=== PATIENT | female | born 1945 | race Caucasian/White ===

== ENCOUNTER 2024-04-17 19:02 | Inpatient (IN) | payer MEDICARE, MEDICAID, SELFPAY ==
--- NOTE | ~2024-04-17 | US_ITS ---
EXAMINATION: US renal BI DATE: 04/19/2024 15:47 INDICATION: Acute kidney injury. TECHNIQUE: Multiple ultrasound grayscale images of the kidneys were obtained. COMPARISON: None. FINDINGS: The right kidney measures 7.4 x 3.8 x 3.5 cm cm. The left kidney measures 7.2 x 3.6 x 3.6 cm cm. The kidneys demonstrate normal parenchymal echogenicity. There is no hydronephrosis. The bladder is dina l. IMPRESSION: 1. Mild atrophy of the kidneys. No hydronephrosis. Reviewed, dictated and finalized at location E.
--- NOTE | ~2024-04-17 | XR_ITS ---
XR chest 2V Ordering provider: Kusum Hernandez MD History: 79 years Female with . chest pain . Comparison: None. FINDINGS: MEDIASTINUM: The cardiac silhouette is not enlarged. LUNGS: No infiltrates, effusions or pneumothorax. OTHER: No free air under the diaphragm. Degenerative the spine. IMPRESSION: No acute cardiopulmonary pathology. Reviewed, dictated and finalized at location A.
[2024-04-17 18:59] VITALS: BP 136/60; PULSE 77; RESP 21; TEMP 36.8; O2SAT 100
--- NOTE | 2024-04-17 19:08 | ECG_ITS ---
Test Date: 2024-04-17 19:42:43 Measurements Intervals [place] Rate: 66 P: 68 ME: 154 QRS: 51 QRSD: 88 T: 79 QT: 376 QTc: 395 Interpretive Statements SINUS RHYTHM No previous ECG available for comparison Electronically Signed On 04-19-2024 13:29:21 CDT by Domingo Paulino M.D.
[2024-04-17 19:09] VITALS: PULSE 77; O2SAT 100
--- NOTE | 2024-04-17 19:28 | ED.CHESTPAIN ---
HPI - Chest Pain General Chief Complaint: Chest Pain <Rachelle Keane PA-C - Last Filed: 04/18/24 02:43> Stated Complaint: chest pain <Rachelle Keane PA-C - Last Filed: 04/18/24 02:43> Time Seen by Provider: 04/17/24 19:13 <Rachelle Keane PA-C - Last Filed: 04/18/24 02:43> Source: patient, family and EMS <ERENDIRA Jenkins Last Filed: 04/18/24 02:43> Mode of arrival: EMS <ERENDIRA Jenkins Last Filed: 04/18/24 02:43> History of Present Illness HPI narrative: This is a 79 year old female that presents to the ER for chest pain and shortness of breath since yesterday. Her daughter is her primary respiratory care faculty due to history of a stroke last year. Daughter reports she has also been coughing. Her daughter tried to convince her to come in yesterday for evaluation. Patient with history of CHF, CAD. Denies any chest pain or shortness of breath currently <Rachelle Keane PA-C - Last Filed: 04/18/24 02:43> Related Data Home Medications: Home Medications Medication Instructions Recorded Confirmed amlodipine 5 mg tablet 5 mg feeding tube QAM 04/17/24 04/17/24 aspirin 81 mg chewable tablet 81 mg feeding tube QAM 04/17/24 04/17/24 atorvastatin 80 mg tablet 80 mg feeding tube HS 04/17/24 04/17/24 carvedilol 6.25 mg tablet 6.25 mg feeding tube BID 04/17/24 04/17/24 clopidogrel 75 mg tablet 75 mg feeding tube QAM 04/17/24 04/17/24 dapagliflozin propanediol 10 mg 10 mg feeding tube QAM 04/17/24 04/17/24 tablet (Farxiga) furosemide 20 mg tablet 20 mg feeding tube QAM PRN Weight 04/17/24 04/17/24 Gain sacubitril 24 mg-valsartan 26 mg 1 tablet feeding tube BID 04/17/24 04/17/24 tablet (Entresto) spironolactone 25 mg tablet 25 mg feeding tube QAM 04/17/24 04/17/24 <Rachelle Keane PA-C - Last Filed: 04/18/24 02:43> Allergies/Adverse Reactions: Allergies Allergy/AdvReac Type Severity Reaction Status Date / Time No Known Allergies Allergy Verified 04/17/24 19:11 <Rachelle Keane PA-C - Last Filed: 04/18/24 02:43> Review of Systems Review of Systems: CONSTITUTIONAL: Denies fever CARDIOVASCULAR: Reports chest pain. Denies edema. RESPIRATORY: Reports cough and dyspnea. <Rachelle Keane PA-C - Last Filed: 04/18/24 02:43> All systems reviewed & are unremarkable except as noted in HPI and below <Rachelle Keane PA-C - Last Filed: 04/18/24 02:43> PMFSH Past Medical History Medical History: Medical History (Updated 04/18/24 @ 02:39 by Rachelle Keane PA-C) History of CAD (coronary artery disease) History of CHF (congestive heart failure) History of diabetes mellitus History of hyperlipidemia History of hypertension <Rachelle Keane PA-C - Last Filed: 04/18/24 02:43> Family History Family History: Family History (Updated 04/17/24 @ 23:17 by Margareth Jones RN) Sibling Acute myocardial infarction Congestive heart failure Mother Cerebrovascular accident Diabetes mellitus <Rachelle Keane PA-C - Last Filed: 04/18/24 02:43> Social History Social History: Social History (Updated 04/17/24 @ 19:30 by Rachelle Keane PA-C) Smoking status: Former smoker Alcohol intake: never Substance use: never Do You Feel Safe in your Home?: Yes Lack of Transportation: No Lack of Food: Never True Current Housing: I Have Housing Concerned About Future Housing: No Difficulty Paying Gas/Electric Bills: No Difficulty Paying for Meds: No Currently Unemployed: No Education: Associate Degree Difficulty w/ Childcare or Family Care: No Spiritual care concerns: No <Rachelle Keane PA-C - Last Filed: 04/18/24 02:43> Exam Narrative: GENERAL: Elderly, well-nourished, and in no acute distress. HEAD: Normocephalic, atraumatic. EYES: EOMI. ENT: Nares clear, no rhinorrhea or epistaxis. Mucous membranes moist. Oropharynx without tonsillar hypertrophy exudate or other lesions. NECK: Supple. No adenopathy or masses. CH
[2024-04-17 19:59] LABS: Basophils Percent Auto 0.6 % (0.2-1.2); Eosinophils Absolute Auto 0.1 K/mm3 (0-0.3); Hematocrit 30.3 % (37.0-47.0); Hemoglobin 9.8 g/dL (12.0-15.0); Immature Granulocyte Absolute 0.03 K/mm3 (0.00-0.031); Immature Granulocyte Percent A 0.5 % (0-0.5); Lymphocytes Absolute Auto 1.04 K/mm3 (0.9-3.2); Lymphocytes Percent Auto 15.6 % (18.3-44.2); Mean Corpuscular HGB Conc 32.3 g/dl (32-36); Mean Corpuscular Hemoglobin 31.9 pg (26-34); Mean Corpuscular Volume 98.7 fl (80-100); Mean Platelet Volume 10.2 fl (7.4-10.4); Monocytes Absolute Auto 1.1 K/mm3 (0.1-0.6); Neutrophils Absolute Auto 4.3 K/mm3 (1.3-6.7); Neutrophils Percent Auto 64.3 % (45.5-73.1); Platelet Count Result 277 k/mm3 (150-375); Red Blood Count 3.07 M/mm3 (4.2-5.4); White Blood Count 6.7 K/mm3 (4.5-10.0)
[2024-04-17 20:08] LABS: Alanine Aminotransferase 10 U/L (6-35); Albumin Level 4.3 g/dL (3.5-5.1); Alkaline Phosphatase 61 U/L (38-126); Anion Gap 12 mmol/L (4-12); Aspartate Amino Transferase 26 U/L (14-36); Bilirubin,Total 0.6 mg/dL (0.2-1.3); Blood Urea Nitrogen 36 mg/dL (7-17); Calcium 9.6 mg/dL (8.4-10.2); Carbon Dioxide 21 mmol/L (22-30); Chloride 102 mmol/L (98-107); Estimated CRCL calculation 9 ml/min; Estimated Glomerular Filt Rate 14; Glucose 101 mg/dL (65-110); Lipase 121 U/L (23-300); Potassium 5.5 mmol/L (3.4-5.0); Sodium 135 mmol/L (137-145)
[2024-04-17 20:13] LABS: Prothrombin Time 13.9 Seconds (11.1-14.7)
[2024-04-17 20:26] LABS: NT Pro B Type Natriuretic Pept 1270 pg/mL (19.9-100); Troponin I 0.019 ng/mL (0.000-0.034)
[2024-04-17] MEDS: SODIUM CHLORIDE 0.9% IV 500 ML 999 ML IV CONT (21:06)
[2024-04-17 21:07] LABS: Influenza A QL RT-PCR Negative (Negative); Influenza B QL RT-PCR Negative (Negative); RSV RNA, RT-PCR Negative (Negative); SARS-CoV-2 RNA PCR Positive (Negative)
[2024-04-17 21:17] VITALS: BP 140/65; PULSE 67; RESP 21; O2SAT 100
[2024-04-17 21:57] LABS: Add Urine Microscopic? YES; Appearance Urine Clear (Clear); Bacteria Urine 3+ /hpf; Bilirubin Urine Negative (Negative); Blood Urine Negative (Negative); Color Urine Yellow (Yellow); Glucose Urine UA Negative (Negative); Ketones Urine Negative (Negative); Leukocyte Esterase Ur 1+ LEU/UL (Negative); Nitrate Urine Negative (Negative); Non Pathogenic Casts 0-2; Protein Urine Negative (Negative); RBC Urine 0-2 /hpf (0-2); Specific Grav Ur 1.005 (1.001-1.035); Squamous Epithelial Cell Urine None Seen /hpf (Few); Urobilinogen Urine 0.2 mg/dL (<2.0)
--- NOTE | 2024-04-17 22:08 | PM.IMHP ---
H&P: HPI History of Present Illness Date/Time: 04/17/24 22:08 Chief Complaint: chest pain Narrative: This is a 79 yo female with past medical history significant for stroke, dysarthria, congestive heart failure, hypertension, coronary artery disease, type diabetes mellitus. Patient is status post PEG tube placement. Was brought to the emergency room after complaining of chest discomfort however he after preliminary workup was done including EKG and negative troponins and after further evaluation urinalysis was significant for numerous WBCs present, patient tested positive for COVID. patient usually gets her care at another facility. Most of the history has been obtained from daughter who is at bedside. Patient has been admitted for further evaluation management and treatment. XR chest 2V Ordering provider: Kusum Hernandez MD History: 79 years Female with . chest pain . Comparison: None. FINDINGS: MEDIASTINUM: The cardiac silhouette is not enlarged. LUNGS: No infiltrates, effusions or pneumothorax. OTHER: No free air under the diaphragm. Degenerative the spine. IMPRESSION: No acute cardiopulmonary pathology. Review of Systems Review of Systems: chest pain ROS unobtainable: Yes unobtainable due to medical condition ( dysarthria, dementia) [facility] Past Medical History Medical History (Updated 04/18/24 @ 06:47 by Sylvia Montiel PA-C) History of CAD (coronary artery disease) History of CHF (congestive heart failure) History of diabetes mellitus History of hyperlipidemia History of hypertension Family History Family History (Updated 04/17/24 @ 23:17 by Margareth Jones RN) Sibling Acute myocardial infarction Congestive heart failure Mother Cerebrovascular accident Diabetes mellitus Social History Social History (Updated 04/17/24 @ 19:30 by Rachelle Keane PA-C) Smoking status: Former smoker Alcohol intake: never Substance use: never Do You Feel Safe in your Home?: Yes Lack of Transportation: No Lack of Food: Never True Current Housing: I Have Housing Concerned About Future Housing: No Difficulty Paying Gas/Electric Bills: No Difficulty Paying for Meds: No Currently Unemployed: No Education: Associate Degree Difficulty w/ Childcare or Family Care: No Spiritual care concerns: No Meds Home Medications and Allergies Home Medications Medication Instructions Recorded Confirmed Type amlodipine 5 mg tablet 5 mg feeding tube QAM 04/17/24 04/17/24 History aspirin 81 mg chewable tablet 81 mg feeding tube QAM 04/17/24 04/17/24 History atorvastatin 80 mg tablet 80 mg feeding tube HS 04/17/24 04/17/24 History carvedilol 6.25 mg tablet 6.25 mg feeding tube BID 04/17/24 04/17/24 History clopidogrel 75 mg tablet 75 mg feeding tube QAM 04/17/24 04/17/24 History dapagliflozin propanediol 10 mg 10 mg feeding tube QAM 04/17/24 04/17/24 History tablet (Farxiga) furosemide 20 mg tablet 20 mg feeding tube QAM PRN Weight 04/17/24 04/17/24 History Gain sacubitril 24 mg-valsartan 26 mg 1 tablet feeding tube BID 04/17/24 04/17/24 History tablet (Entresto) spironolactone 25 mg tablet 25 mg feeding tube QAM 04/17/24 04/17/24 History Allergies Allergy/AdvReac Type Severity Reaction Status Date / Time No Known Allergies Allergy Verified 04/17/24 19:11 Vital Signs Vital Signs - 24 hr 04/17/24 18:59 04/17/24 19:09 04/17/24 19:09 Temperature 98.3 F Pulse Rate 77 77 Respiratory Rate 21 H Blood Pressure 136/60 Pulse Oximetry 100 100 Oxygen Delivery Room Air Room Air 04/17/24 21:17 Temperature Pulse Rate 67 Respiratory Rate 21 H Blood Pressure 140/65 Pulse Oximetry 100 Oxygen Delivery Exam Narrative: lying in stretcher. Const: General: comfortable, no acute distress, well developed, alert, awake and average body habitus Nutritional Appearance: underweight Orientation/consciousness: patient oriented x3 HE
--- NOTE | 2024-04-17 23:04 | ADMGEN ---
This patient, Nessa Lozano, was admitted to Medical Room 244-. Patient/family oriented to hospital policies and general routines including ID bracelet, bed and alarms, visiting hours, pain management, procedures, bathroom and other care routines, personal items, smoking policy, room service/diet, and visiting hours. Information on how to activate the Rapid Response Team has been discussed. Patient/Family are encouraged to report perceived risks to care and to ask questions if they do not understand what they are told or what they should do.
[2024-04-17 23:13] LABS: Troponin I 0.017 ng/mL (0.000-0.034)
[2024-04-18] VITALS (10 sets, daily range): BP systolic 92–134; BP diastolic 36–58; PULSE 62–73; RESP 16–20; TEMP 36.3–36.9; O2SAT 93–100
--- NOTE | 2024-04-18 06:42 | PM.IMPN ---
Progress Note: A&P Assessment and Plan (1) COVID-19: Code(s): U07.1 - COVID-19 Status: Acute Assessment and Plan: Patient presents with chest pain and shortness of breath. No need for remdesivir or steroids at this time as patient is afebrile, denies SOB, no WBC. - Covid positive on PCR - Chest XR: No acute cardiopulmonary pathology - Troponin WNL (2) Hyperkalemia: Code(s): E87.5 - Hyperkalemia Status: Acute Assessment and Plan: Pateints potassium was 5.5 on admission. - K 4.8 on am labs - Continue to monitor (3) Abnormal urinalysis: Code(s): R82.90 - Unspecified abnormal findings in urine Status: Acute Assessment and Plan: - UA:clear with 1+ leukocyte, 6-10 white blood cell, 3+ bacteria negative nitrates, no squamous epithelial cells seen - UC obtained on 04/17: pending - No previous micro to be reviewed - started on Rocephin on 04/17 (4) Acute on chronic renal failure: Qualifiers: Acute renal failure type: unspecified Chronic kidney disease stage: unspecified stage Qualified Code(s): N17.9 - Acute kidney failure, unspecified; N18.9 - Chronic kidney disease, unspecified Code(s): N17.9 - Acute kidney failure, unspecified; N18.9 - Chronic kidney disease, unspecified Status: Acute Assessment and Plan: BUN/Cr 36/3.2. No prior labs to compare this to. - BUN/Cr 34/3 on am labs - IV NS 75 ml/hr - Avoid nephrotoxic medications - Renally dose medications - Monitor I/O and vital signs - Monitor renal function with am labs (5) Type 2 diabetes mellitus: Code(s): E11.9 - Type 2 diabetes mellitus without complications Status: Acute Assessment and Plan: - hypoglycemia protocol - POC blood glucose ACHS - home medication - Farxiga 10 mg per PEG tube - correct regimen ordered - low dose TIDWM (6) Hypertension: Code(s): I10 - Essential (primary) hypertension Status: Acute Assessment and Plan: Chronic, well controlled on home medications. - amlodipine 5 mg daily - carvedilol 6.25 mg BID - entresto 1 tab BID - spironolactone 25 mg daily - holding lasix 20 mg PRN due to kidney function - monitor (7) CHF (congestive heart failure): Code(s): I50.9 - Heart failure, unspecified Status: Acute Assessment and Plan: Chronic, does not appear to be in acute exacerbation. - Continue home medications - Monitor Time Spent With Patient Time with patient: 25 - 35 minutes Subjective Date/time seen: 04/18/24 06:42 Interval history: 79 year old female with past medical history of CAD, CHF, DM, HLD, and HTN presents to the hospital for chest pain and shortness of breath. Patient is pleasant lying comfortably in bed. She is AOx4 on assessment. Patient endorses a slight nonproductive cough. She denies chest pain, shortness of breath, nausea/vomiting and changes in bowel. She also denies hematuria, dysuria, and burning sensation. She remains on rocephin at this time. Started patient on IV NS for kidney function. Cr 3 on am labs. If no improvement with fluids will consult nephrology. Review of Systems Review of Systems: All systems reviewed & are unremarkable except as noted in HPI and below Exam Narrative: AF HR 72 RR 16 SpO2 97 BP 92/36 General: frail female in no acute respiratory distress who is nontoxic appearing, lying semi recumbent in bed. HEENT: Normocephalic. Atraumatic. Pupils equal round reactive to light. Extraocular movement intact. No facial asymmetry. Chest: Lungs are clear but diminished to auscultation bilaterally. No wheezes or crackles. CV: Heart was regular rate and rhythm. S1-S2. No murmurs, gallops, or rubs. Abd: Abdomen was soft. Nontender. Nondistended. Positive bowel sounds. Peg tube in place. Ext: No clubbing, cyanosis, or edema. 2+ DP pulses bilaterally. Neuro: Patient is alert and oriented x4. Strength is 5/5 in both upper and lower extremities. Cranial ne
[2024-04-18 07:56] LABS: Glucose Point of Care 91 mg/dl (65-105)
[2024-04-18] MEDS: ASPIRIN 81 MG CHEWABLE TABLET FEED TUBE (08:41)
[2024-04-18] MEDS: EMPAGLIFLOZIN 25 MG TABLET FEED TUBE (08:42)
[2024-04-18] MEDS: CLOPIDOGREL BISULFATE 75 MG TABLET FEED TUBE (08:42)
[2024-04-18] MEDS: carvediloL 6.25 MG TABLET FEED TUBE ×2 (08:42→20:24)
[2024-04-18] MEDS: amLODIPine BESYLATE 5 MG TABLET FEED TUBE (08:42)
[2024-04-18 08:45] LABS: Basophils Percent Auto 0.5 % (0.2-1.2); Eosinophils Absolute Auto 0.2 K/mm3 (0-0.3); Eosinophils Percent Auto 3.1 % (0-4.4); Hematocrit 29.6 % (37.0-47.0); Hemoglobin 9.2 g/dL (12.0-15.0); Immature Granulocyte Absolute 0.02 K/mm3 (0.00-0.031); Immature Granulocyte Percent A 0.3 % (0-0.5); Lymphocytes Absolute Auto 0.94 K/mm3 (0.9-3.2); Lymphocytes Percent Auto 14.4 % (18.3-44.2); Mean Corpuscular HGB Conc 31.1 g/dl (32-36); Mean Corpuscular Hemoglobin 30.8 pg (26-34); Mean Platelet Volume 10.5 fl (7.4-10.4); Monocytes Absolute Auto 1.1 K/mm3 (0.1-0.6); Monocytes Percent Auto 16.1 % (2.6-8.5); Neutrophils Absolute Auto 4.3 K/mm3 (1.3-6.7); Neutrophils Percent Auto 65.6 % (45.5-73.1); Platelet Count Result 268 k/mm3 (150-375); Red Blood Count 2.99 M/mm3 (4.2-5.4); Red Cell Distribution Width 12.8 % (11.5-14.5); White Blood Count 6.5 K/mm3 (4.5-10.0)
[2024-04-18 08:57] LABS: Alanine Aminotransferase 10 U/L (6-35); Albumin Level 3.8 g/dL (3.5-5.1); Alkaline Phosphatase 59 U/L (38-126); Anion Gap 13 mmol/L (4-12); Aspartate Amino Transferase 23 U/L (14-36); Bilirubin,Total 0.4 mg/dL (0.2-1.3); Blood Urea Nitrogen 34 mg/dL (7-17); Carbon Dioxide 19 mmol/L (22-30); Chloride 106 mmol/L (98-107); Estimated CRCL calculation 10 ml/min; Estimated Glomerular Filt Rate 15; Glucose 93 mg/dL (65-110); Potassium 4.8 mmol/L (3.4-5.0); Sodium 138 mmol/L (137-145)
[2024-04-18 11:54] LABS: Glucose Point of Care 98 mg/dl (65-105)
[2024-04-18] MEDS: SODIUM CHLORIDE 0.9% IV 1,000 ML 75 ML IV CONT (13:50)
[2024-04-18] MEDS: ACETAMINOPHEN 325 MG TABLET 650 MG PO ×2 (13:50→20:23)
[2024-04-18 16:58] LABS: Glucose Point of Care 130 mg/dl (65-105)
--- NOTE | 2024-04-18 17:27 | PC.NURSE ---
daughter here to visit, confirmed that pt takes 2 boost cans at breakfast and dinner per GT, order placed for suppliment to begin 04/19/2024
[2024-04-18] MEDS: ATORVASTATIN 40 MG TABLET 80 MG FEED TUBE (20:24)
[2024-04-19] VITALS (9 sets, daily range): BP systolic 102–117; BP diastolic 30–48; PULSE 60–84; RESP 18–22; TEMP 36.3–37.1; O2SAT 93–100
[2024-04-19] MEDS: SODIUM CHLORIDE 0.9% IV 1,000 ML 75 ML IV CONT (04:31)
[2024-04-19 05:16] LABS: Basophils Percent Auto 0.5 % (0.2-1.2); Eosinophils Absolute Auto 0.4 K/mm3 (0-0.3); Eosinophils Percent Auto 5.4 % (0-4.4); Immature Granulocyte Absolute 0.02 K/mm3 (0.00-0.031); Immature Granulocyte Percent A 0.3 % (0-0.5); Lymphocytes Absolute Auto 1.38 K/mm3 (0.9-3.2); Lymphocytes Percent Auto 21.2 % (18.3-44.2); Mean Corpuscular Hemoglobin 31.5 pg (26-34); Mean Corpuscular Volume 101.4 fl (80-100); Mean Platelet Volume 10.3 fl (7.4-10.4); Monocytes Absolute Auto 0.8 K/mm3 (0.1-0.6); Monocytes Percent Auto 12.7 % (2.6-8.5); Neutrophils Absolute Auto 3.9 K/mm3 (1.3-6.7); Neutrophils Percent Auto 59.9 % (45.5-73.1); Platelet Count Result 256 k/mm3 (150-375); Red Blood Count 2.86 M/mm3 (4.2-5.4); Red Cell Distribution Width 12.7 % (11.5-14.5); White Blood Count 6.5 K/mm3 (4.5-10.0)
[2024-04-19 05:33] LABS: Alanine Aminotransferase 10 U/L (6-35); Albumin Level 3.7 g/dL (3.5-5.1); Alkaline Phosphatase 57 U/L (38-126); Anion Gap 12 mmol/L (4-12); Aspartate Amino Transferase 23 U/L (14-36); Bilirubin,Total 0.3 mg/dL (0.2-1.3); Blood Urea Nitrogen 36 mg/dL (7-17); Calcium 8.8 mg/dL (8.4-10.2); Carbon Dioxide 21 mmol/L (22-30); Chloride 107 mmol/L (98-107); Estimated CRCL calculation 11 ml/min; Estimated Glomerular Filt Rate 17; Glucose 93 mg/dL (65-110); Potassium 4.5 mmol/L (3.4-5.0); Sodium 140 mmol/L (137-145)
--- NOTE | 2024-04-19 06:42 | PM.IMPN ---
Progress Note: A&P Assessment and Plan (1) COVID-19: Code(s): U07.1 - COVID-19 Status: Acute Assessment and Plan: Patient presents with chest pain and shortness of breath. No need for remdesivir or steroids at this time as patient is afebrile, denies SOB, no WBC. - Covid positive on PCR - Chest XR: No acute cardiopulmonary pathology - Troponin WNL (2) Hyperkalemia: Code(s): E87.5 - Hyperkalemia Status: Acute Assessment and Plan: Pateints potassium was 5.5 on admission. - K 4.5 on am labs - Continue to monitor (3) Abnormal urinalysis: Code(s): R82.90 - Unspecified abnormal findings in urine Status: Acute Assessment and Plan: - UA:clear with 1+ leukocyte, 6-10 white blood cell, 3+ bacteria negative nitrates, no squamous epithelial cells seen - UC obtained on 04/17: Ecoli sensitivities pending - No previous micro to be reviewed - started on Rocephin on 04/17 (4) Acute on chronic renal failure: Qualifiers: Acute renal failure type: unspecified Chronic kidney disease stage: unspecified stage Qualified Code(s): N17.9 - Acute kidney failure, unspecified; N18.9 - Chronic kidney disease, unspecified Code(s): N17.9 - Acute kidney failure, unspecified; N18.9 - Chronic kidney disease, unspecified Status: Acute Assessment and Plan: BUN/Cr 36/3.2. No prior labs to compare this to. Per patients daughter/respiratory care faculty she has history of CKD, unknown stage. Previously following a buckle coverer but has not been seen for several years. - BUN/Cr 36/2.7 on am labs - IV NS 75 ml/hr - Renal US ordered - Avoid nephrotoxic medications - Renally dose medications - Monitor I/O and vital signs - Monitor renal function with am labs (5) Type 2 diabetes mellitus: Code(s): E11.9 - Type 2 diabetes mellitus without complications Status: Acute Assessment and Plan: Patients blood glucose has been stable throughout admission, not requiring any insulin therapy. Will discontinue the POC glucose and SSI at this time and monitor blood glucose with CMP. - home medication - Farxiga 10 mg per PEG tube (6) Hypertension: Code(s): I10 - Essential (primary) hypertension Status: Acute Assessment and Plan: Chronic, well controlled on home medications. - amlodipine 5 mg daily - carvedilol 6.25 mg BID - entresto 1 tab BID - spironolactone 25 mg daily - holding lasix 20 mg PRN due to kidney function - monitor (7) CHF (congestive heart failure): Code(s): I50.9 - Heart failure, unspecified Status: Acute Assessment and Plan: Chronic, does not appear to be in acute exacerbation. - Continue home medications - Monitor Time Spent With Patient Time with patient: 25 - 35 minutes Subjective Date/time seen: 04/19/24 06:42 Interval history: 79 year old female with past medical history of CAD, CHF, DM, HLD, and HTN presents to the hospital for chest pain and shortness of breath. Patient is pleasant lying comfortably in bed. She remains A&O x4. She endorses a slight cough,, but denies chest pain shortness of breath nausea/vomiting abdominal pain and changes in bowel/bladder. Patient's urine culture growing E coli with sensitivities pending. She remains on Rocephin at this time. Patients blood glucose has been stable throughout admission, not requiring any insulin therapy. Will discontinue the POC glucose and insulin at this time and monitor blood glucose with CMP. Patient's renal function improving with fluids. Unsure what patient's baseline renal function is as there are no labs to compare. Prior to admission patient was living alone. PT/OT ordered. Call made to patients daughter/respiratory care faculty. She states that patient does have history of CKD, but is unsure what stage. Patient previously seen by nephrology, but has not been in several years. All questions answered at time of discussion. Plan to call Dr. Bello (patients PCP)
[2024-04-19] MEDS: carvediloL 6.25 MG TABLET FEED TUBE ×2 (08:01→20:15)
[2024-04-19] MEDS: EMPAGLIFLOZIN 25 MG TABLET FEED TUBE (08:01)
[2024-04-19] MEDS: CLOPIDOGREL BISULFATE 75 MG TABLET FEED TUBE (08:01)
[2024-04-19] MEDS: amLODIPine BESYLATE 5 MG TABLET FEED TUBE (08:01)
[2024-04-19] MEDS: ASPIRIN 81 MG CHEWABLE TABLET FEED TUBE (08:01)
[2024-04-19 08:30] LABS: Glucose Point of Care 80 mg/dl (65-105)
--- NOTE | 2024-04-19 17:00 | PC.NURSE ---
IV access lost on pt, multiple attempts to obtain access with no success. DONAVAN Mao notified. Ok to leave out at this time, abx changed to PO and IV fluids d/c.
[2024-04-19] MEDS: AMOXICILLIN/CLAVULANATE K 500-125 MG TAB 1 TABLET PO (20:15)
[2024-04-19] MEDS: ATORVASTATIN 40 MG TABLET 80 MG FEED TUBE (20:15)
[2024-04-20] VITALS (8 sets, daily range): BP systolic 105–143; BP diastolic 40–48; PULSE 57–84; RESP 16–18; TEMP 36.3–37.3; O2SAT 91–100
--- NOTE | 2024-04-20 08:21 | PM.IMPN ---
Progress Note: A&P Assessment and Plan (1) COVID-19: Code(s): U07.1 - COVID-19 Status: Acute Assessment and Plan: Patient presents with chest pain and shortness of breath. No need for remdesivir or steroids at this time as patient is afebrile, denies SOB, no WBC. - Covid positive on PCR - Chest XR: No acute cardiopulmonary pathology - Troponin WNL (2) Hyperkalemia: Code(s): E87.5 - Hyperkalemia Status: Acute Assessment and Plan: Pateints potassium was 5.5 on admission. - K 4.6 on am labs - Continue to monitor Resolved. (3) Abnormal urinalysis: Code(s): R82.90 - Unspecified abnormal findings in urine Status: Acute Assessment and Plan: - UA:clear with 1+ leukocyte, 6-10 white blood cell, 3+ bacteria negative nitrates, no squamous epithelial cells seen - UC obtained on 04/17: Ecoli pansensitive - No previous micro to be reviewed - started on Rocephin on 04/17, transitioned to renally dosed Augmentin on 04/19 (4) Acute on chronic renal failure: Qualifiers: Acute renal failure type: unspecified Chronic kidney disease stage: unspecified stage Qualified Code(s): N17.9 - Acute kidney failure, unspecified; N18.9 - Chronic kidney disease, unspecified Code(s): N17.9 - Acute kidney failure, unspecified; N18.9 - Chronic kidney disease, unspecified Status: Acute Assessment and Plan: BUN/Cr 36/3.2. No prior labs to compare this to. Per patients daughter/behavioral health care coordinator she has history of CKD, unknown stage. Previously following a manifold builder but has not been seen for several years. - BUN/Cr 33/2.2 on am labs - IV NS 75 ml/hr - Renal US: mild atrophy of the kidneys, without hydronephrosis. - Avoid nephrotoxic medications - Renally dose medications - Monitor I/O and vital signs - Monitor renal function with am labs (5) Type 2 diabetes mellitus: Code(s): E11.9 - Type 2 diabetes mellitus without complications Status: Acute Assessment and Plan: Patients blood glucose has been stable throughout admission, not requiring any insulin therapy. Will discontinue the POC glucose and SSI at this time and monitor blood glucose with CMP. - home medication - Farxiga 10 mg per PEG tube (6) Hypertension: Code(s): I10 - Essential (primary) hypertension Status: Acute Assessment and Plan: Chronic, well controlled on home medications. - amlodipine 5 mg daily - carvedilol 6.25 mg BID - entresto 1 tab BID - spironolactone 25 mg daily - holding lasix 20 mg PRN due to kidney function - monitor (7) CHF (congestive heart failure): Code(s): I50.9 - Heart failure, unspecified Status: Acute Assessment and Plan: Chronic, does not appear to be in acute exacerbation. - Continue home medications - Monitor Time Spent With Patient Time with patient: 25 - 35 minutes Subjective Date/time seen: 04/20/24 08:21 Interval history: 79 year old female with past medical history of CAD, CHF, DM, HLD, and HTN presents to the hospital for chest pain and shortness of breath. Patient is pleasant lying comfortably in bed. She states she is feeling much better today compared to yesterday. She has no complaints, denying chest pain, shortness of breath, nausea/vomiting and changes in bowel/bladder. Patients kidney function continues to improve with IV fluids. Renal US showing atrophy without hydronephrosis. Attempted to call PCP, Dr. Bello to obtain information on patients baseline function. Voicemail left. Patient was evaluated by PT/OT today. She was able to ambulate with wheeled walker. Recommending home health services. Review of Systems Review of Systems: All systems reviewed & are unremarkable except as noted in HPI and below Exam Narrative: AF HR 57 RR 18 SpO2 91 BP 105/40 General: frail female in no acute respiratory distress who is nontoxic appearing, lying semi recumbent in bed. HEENT: Normocephalic.
[2024-04-20] MEDS: carvediloL 6.25 MG TABLET FEED TUBE ×2 (08:58→21:25)
[2024-04-20] MEDS: EMPAGLIFLOZIN 25 MG TABLET FEED TUBE (08:58)
[2024-04-20] MEDS: CLOPIDOGREL BISULFATE 75 MG TABLET FEED TUBE (08:59)
[2024-04-20] MEDS: amLODIPine BESYLATE 5 MG TABLET FEED TUBE (08:59)
[2024-04-20] MEDS: AMOXICILLIN/CLAVULANATE K 500-125 MG TAB 1 TABLET PO ×2 (08:59→21:25)
[2024-04-20] MEDS: ASPIRIN 81 MG CHEWABLE TABLET FEED TUBE (08:59)
[2024-04-20 09:30] LABS: Basophils Percent Auto 0.5 % (0.2-1.2); Eosinophils Absolute Auto 0.3 K/mm3 (0-0.3); Eosinophils Percent Auto 3.9 % (0-4.4); Hematocrit 29.4 % (37.0-47.0); Hemoglobin 9.2 g/dL (12.0-15.0); Immature Granulocyte Absolute 0.02 K/mm3 (0.00-0.031); Immature Granulocyte Percent A 0.3 % (0-0.5); Lymphocytes Absolute Auto 1.27 K/mm3 (0.9-3.2); Lymphocytes Percent Auto 19.6 % (18.3-44.2); Mean Corpuscular HGB Conc 31.3 g/dl (32-36); Mean Corpuscular Hemoglobin 31.7 pg (26-34); Mean Corpuscular Volume 101.4 fl (80-100); Mean Platelet Volume 10.4 fl (7.4-10.4); Monocytes Absolute Auto 0.7 K/mm3 (0.1-0.6); Monocytes Percent Auto 10.5 % (2.6-8.5); Neutrophils Absolute Auto 4.2 K/mm3 (1.3-6.7); Neutrophils Percent Auto 65.2 % (45.5-73.1); Platelet Count Result 261 k/mm3 (150-375); Red Cell Distribution Width 12.8 % (11.5-14.5); White Blood Count 6.5 K/mm3 (4.5-10.0)
[2024-04-20 09:41] LABS: Alanine Aminotransferase 10 U/L (6-35); Alkaline Phosphatase 59 U/L (38-126); Anion Gap 12 mmol/L (4-12); Aspartate Amino Transferase 24 U/L (14-36); Bilirubin,Total 0.5 mg/dL (0.2-1.3); Blood Urea Nitrogen 33 mg/dL (7-17); Calcium 9.1 mg/dL (8.4-10.2); Carbon Dioxide 18 mmol/L (22-30); Chloride 108 mmol/L (98-107); Estimated CRCL calculation 14 ml/min; Estimated Glomerular Filt Rate 22; Glucose 123 mg/dL (65-110); Potassium 4.6 mmol/L (3.4-5.0); Sodium 138 mmol/L (137-145)
[2024-04-20] MEDS: ATORVASTATIN 40 MG TABLET 80 MG FEED TUBE (21:25)
[2024-04-21] VITALS (9 sets, daily range): BP systolic 100–113; BP diastolic 34–58; PULSE 58–65; RESP 17–20; TEMP 36.4–37.1; O2SAT 96–100; BMI 15.3
[2024-04-21 06:40] LABS: Basophils Percent Auto 0.4 % (0.2-1.2); Eosinophils Absolute Auto 0.4 K/mm3 (0-0.3); Eosinophils Percent Auto 6.7 % (0-4.4); Hematocrit 28.2 % (37.0-47.0); Hemoglobin 8.6 g/dL (12.0-15.0); Immature Granulocyte Absolute 0.02 K/mm3 (0.00-0.031); Immature Granulocyte Percent A 0.4 % (0-0.5); Lymphocytes Absolute Auto 1.45 K/mm3 (0.9-3.2); Lymphocytes Percent Auto 25.4 % (18.3-44.2); Mean Corpuscular HGB Conc 30.5 g/dl (32-36); Mean Corpuscular Hemoglobin 31.7 pg (26-34); Mean Corpuscular Volume 104.1 fl (80-100); Mean Platelet Volume 10.5 fl (7.4-10.4); Monocytes Absolute Auto 0.7 K/mm3 (0.1-0.6); Monocytes Percent Auto 12.3 % (2.6-8.5); Neutrophils Absolute Auto 3.1 K/mm3 (1.3-6.7); Neutrophils Percent Auto 54.8 % (45.5-73.1); Platelet Count Result 244 k/mm3 (150-375); Red Blood Count 2.71 M/mm3 (4.2-5.4); Red Cell Distribution Width 12.7 % (11.5-14.5); White Blood Count 5.7 K/mm3 (4.5-10.0)
[2024-04-21 06:54] LABS: Alanine Aminotransferase 8 U/L (6-35); Albumin Level 3.5 g/dL (3.5-5.1); Alkaline Phosphatase 54 U/L (38-126); Anion Gap 13 mmol/L (4-12); Aspartate Amino Transferase 21 U/L (14-36); Bilirubin,Total 0.4 mg/dL (0.2-1.3); Blood Urea Nitrogen 35 mg/dL (7-17); Calcium 8.9 mg/dL (8.4-10.2); Carbon Dioxide 15 mmol/L (22-30); Chloride 108 mmol/L (98-107); Estimated CRCL calculation 14 ml/min; Estimated Glomerular Filt Rate 23; Glucose 96 mg/dL (65-110); Potassium 4.6 mmol/L (3.4-5.0); Sodium 136 mmol/L (137-145)
[2024-04-21] MEDS: AMOXICILLIN/CLAVULANATE K 500-125 MG TAB 1 TABLET PO ×2 (08:59→21:42)
[2024-04-21] MEDS: EMPAGLIFLOZIN 25 MG TABLET FEED TUBE (09:00)
[2024-04-21] MEDS: carvediloL 6.25 MG TABLET FEED TUBE ×2 (09:00→21:42)
[2024-04-21] MEDS: ASPIRIN 81 MG CHEWABLE TABLET FEED TUBE (09:00)
[2024-04-21] MEDS: CLOPIDOGREL BISULFATE 75 MG TABLET FEED TUBE (09:00)
--- NOTE | 2024-04-21 10:30 | PM.IMPN ---
Progress Note: A&P Assessment and Plan (1) COVID-19: Code(s): U07.1 - COVID-19 Status: Acute Assessment and Plan: Patient presents with chest pain and shortness of breath. No need for remdesivir or steroids at this time as patient is afebrile, denies SOB, no WBC. - Covid positive on PCR - Chest XR: No acute cardiopulmonary pathology - Troponin WNL (2) Acute UTI: Code(s): N39.0 - Urinary tract infection, site not specified Status: Acute Assessment and Plan: - UA:clear with 1+ leukocyte, 6-10 white blood cell, 3+ bacteria negative nitrates, no squamous epithelial cells seen - UC obtained on 04/17: Ecoli pansensitive - No previous micro to be reviewed - started on Rocephin on 04/17, transitioned to renally dosed Augmentin on 04/19 (3) Hyperkalemia: Code(s): E87.5 - Hyperkalemia Status: Acute Assessment and Plan: Pateints potassium was 5.5 on admission. - K 4.6 on am labs - Continue to monitor Resolved. (4) Acute on chronic renal failure: Qualifiers: Acute renal failure type: unspecified Chronic kidney disease stage: unspecified stage Qualified Code(s): N17.9 - Acute kidney failure, unspecified; N18.9 - Chronic kidney disease, unspecified Code(s): N17.9 - Acute kidney failure, unspecified; N18.9 - Chronic kidney disease, unspecified Status: Acute Assessment and Plan: BUN/Cr 36/3.2. No prior labs to compare this to. Per patients daughter/care transitions manager she has history of CKD, unknown stage. Previously following a drywall finisher but has not been seen for several years. - BUN/Cr 33/2.1 on am labs - Renal US: mild atrophy of the kidneys, without hydronephrosis. - Avoid nephrotoxic medications - Renally dose medications - Monitor I/O and vital signs - Monitor renal function with am labs - Attempted to call PCP, voicemail left (5) Type 2 diabetes mellitus: Code(s): E11.9 - Type 2 diabetes mellitus without complications Status: Acute Assessment and Plan: Patients blood glucose has been stable throughout admission, not requiring any insulin therapy. Will discontinue the POC glucose and SSI at this time and monitor blood glucose with CMP. - home medication - Farxiga 10 mg per PEG tube (6) Hypertension: Code(s): I10 - Essential (primary) hypertension Status: Acute Assessment and Plan: Chronic, well controlled on home medications. - amlodipine 5 mg daily - carvedilol 6.25 mg BID - entresto 1 tab BID - spironolactone 25 mg daily - holding lasix 20 mg PRN due to kidney function - monitor (7) CHF (congestive heart failure): Code(s): I50.9 - Heart failure, unspecified Status: Acute Assessment and Plan: Chronic, does not appear to be in acute exacerbation. - Continue home medications - Monitor Time Spent With Patient Time with patient: 25 - 35 minutes Subjective Date/time seen: 04/21/24 10:30 Interval history: 79 year old female with past medical history of CAD, CHF, DM, HLD, and HTN presents to the hospital for chest pain and shortness of breath. Patient is pleasant lying comfortably in bed. She has no complaints denying chest pain, shortness of breath, nausea/vomiting and changes in bowel/bladder. She remains on covid isolation. RN was able to contact patients daughter and her tube feeds have been resumed. Patients BUN/Cr continue to improve. Attempted to call patients PCP in regards to her baseline function, voicemail left. Review of Systems Review of Systems: All systems reviewed & are unremarkable except as noted in HPI and below Exam Narrative: AF HR 60 RR 18 SpO2 98 BP 108/54 General: frail female in no acute respiratory distress who is nontoxic appearing, lying semi recumbent in bed. HEENT: Normocephalic. Atraumatic. Pupils equal round reactive to light. Extraocular movement intact. No facial asymmetry. Chest: Lungs are clear but diminished to auscultation
[2024-04-21] MEDS: ATORVASTATIN 40 MG TABLET 80 MG FEED TUBE (21:42)
[2024-04-22 03:57] VITALS: BP 105/45; PULSE 64; RESP 17; TEMP 36.7; O2SAT 99
[2024-04-22 06:09] LABS: Basophils Percent Auto 0.3 % (0.2-1.2); Eosinophils Absolute Auto 0.4 K/mm3 (0-0.3); Eosinophils Percent Auto 5.1 % (0-4.4); Hematocrit 26.6 % (37.0-47.0); Hemoglobin 8.4 g/dL (12.0-15.0); Immature Granulocyte Absolute 0.03 K/mm3 (0.00-0.031); Immature Granulocyte Percent A 0.4 % (0-0.5); Lymphocytes Absolute Auto 1.35 K/mm3 (0.9-3.2); Lymphocytes Percent Auto 17.7 % (18.3-44.2); Mean Corpuscular HGB Conc 31.6 g/dl (32-36); Mean Corpuscular Hemoglobin 32.2 pg (26-34); Mean Corpuscular Volume 101.9 fl (80-100); Mean Platelet Volume 10.9 fl (7.4-10.4); Monocytes Absolute Auto 0.8 K/mm3 (0.1-0.6); Monocytes Percent Auto 10.1 % (2.6-8.5); Neutrophils Absolute Auto 5.1 K/mm3 (1.3-6.7); Neutrophils Percent Auto 66.4 % (45.5-73.1); Platelet Count Result 239 k/mm3 (150-375); Red Blood Count 2.61 M/mm3 (4.2-5.4); Red Cell Distribution Width 12.9 % (11.5-14.5); White Blood Count 7.6 K/mm3 (4.5-10.0)
[2024-04-22 06:16] LABS: Alanine Aminotransferase 9 U/L (6-35); Albumin Level 3.4 g/dL (3.5-5.1); Alkaline Phosphatase 51 U/L (38-126); Anion Gap 12 mmol/L (4-12); Aspartate Amino Transferase 22 U/L (14-36); Bilirubin,Total 0.3 mg/dL (0.2-1.3); Blood Urea Nitrogen 40 mg/dL (7-17); Calcium 8.7 mg/dL (8.4-10.2); Carbon Dioxide 19 mmol/L (22-30); Chloride 107 mmol/L (98-107); Estimated CRCL calculation 14 ml/min; Estimated Glomerular Filt Rate 23; Glucose 97 mg/dL (65-110); Potassium 5.4 mmol/L (3.4-5.0); Sodium 138 mmol/L (137-145)
--- NOTE | 2024-04-22 07:42 | PM.IMPN ---
Progress Note: A&P Assessment and Plan (1) COVID-19: Code(s): U07.1 - COVID-19 Status: Acute Assessment and Plan: Patient presents with chest pain and shortness of breath. No need for remdesivir or steroids at this time as patient is afebrile, denies SOB, no WBC. - Covid positive on PCR - Chest XR: No acute cardiopulmonary pathology - Troponin WNL (2) Acute UTI: Code(s): N39.0 - Urinary tract infection, site not specified Status: Acute Assessment and Plan: - UA:clear with 1+ leukocyte, 6-10 white blood cell, 3+ bacteria negative nitrates, no squamous epithelial cells seen - UC obtained on 04/17: Ecoli pansensitive - No previous micro to be reviewed - started on Rocephin on 04/17, transitioned to renally dosed Augmentin on 04/19 (3) Hyperkalemia: Code(s): E87.5 - Hyperkalemia Status: Acute Assessment and Plan: Pateints potassium was 5.5 on admission. - K 4.6 on am labs - Continue to monitor Resolved. 04/22- on spironolactone----- (4) Acute on chronic renal failure: Qualifiers: Acute renal failure type: unspecified Chronic kidney disease stage: unspecified stage Qualified Code(s): N17.9 - Acute kidney failure, unspecified; N18.9 - Chronic kidney disease, unspecified Code(s): N17.9 - Acute kidney failure, unspecified; N18.9 - Chronic kidney disease, unspecified Status: Acute Assessment and Plan: BUN/Cr 36/3.2. No prior labs to compare this to. Per patients daughter/hospice care sales consultant she has history of CKD, unknown stage. Previously following a dietary aide but has not been seen for several years. - BUN/Cr 33/2.1 on am labs - Renal US: mild atrophy of the kidneys, without hydronephrosis. - Avoid nephrotoxic medications - Renally dose medications - Monitor I/O and vital signs - Monitor renal function with am labs - Attempted to call PCP, voicemail left (5) Type 2 diabetes mellitus: Code(s): E11.9 - Type 2 diabetes mellitus without complications Status: Acute Assessment and Plan: Patients blood glucose has been stable throughout admission, not requiring any insulin therapy. Will discontinue the POC glucose and SSI at this time and monitor blood glucose with CMP. - home medication - Farxiga 10 mg per PEG tube (6) Hypertension: Code(s): I10 - Essential (primary) hypertension Status: Acute Assessment and Plan: Chronic, well controlled on home medications. - amlodipine 5 mg daily - carvedilol 6.25 mg BID - entresto 1 tab BID - spironolactone 25 mg daily - holding lasix 20 mg PRN due to kidney function - monitor (7) CHF (congestive heart failure): Code(s): I50.9 - Heart failure, unspecified Status: Acute Assessment and Plan: Chronic, does not appear to be in acute exacerbation. - Continue home medications - Monitor Time Spent With Patient Time with patient: Greater than 35 minutes Subjective Date/time seen: 04/22/24 07:42 Interval history: 79 year old female with past medical history of CAD, CHF, DM, HLD, and HTN presents to the hospital for chest pain and shortness of breath. Patient is pleasant lying comfortably in bed. She has no complaints denying chest pain, shortness of breath, nausea/vomiting and changes in bowel/bladder. She remains on covid isolation. RN was able to contact patients daughter and her tube feeds have been resumed. Patients BUN/Cr continue to improve. Attempted to call patients PCP in regards to her baseline function, voicemail left. 04/22- assuming care. pt is seen and examined today Review of Systems Review of Systems: chest pain All systems reviewed & are unremarkable except as noted in HPI and below ROS unobtainable: Yes unobtainable due to medical condition ( dysarthria, dementia) Exam Narrative: AF HR 64 RR 17 SpO2 99 BP 105/45 General: frail female in no acute respiratory distress who is nontoxic appearing, lying semi rec
[2024-04-22] MEDS: ASPIRIN 81 MG CHEWABLE TABLET FEED TUBE (08:17)
[2024-04-22] MEDS: EMPAGLIFLOZIN 25 MG TABLET FEED TUBE (08:17)
[2024-04-22] MEDS: amLODIPine BESYLATE 5 MG TABLET FEED TUBE (08:17)
[2024-04-22 08:18] VITALS: PULSE 64
[2024-04-22] MEDS: AMOXICILLIN/CLAVULANATE K 500-125 MG TAB 1 TABLET PO (08:18)
[2024-04-22] MEDS: carvediloL 6.25 MG TABLET FEED TUBE (08:18)
[2024-04-22] MEDS: CLOPIDOGREL BISULFATE 75 MG TABLET FEED TUBE (08:18)
[2024-04-22 08:20] VITALS: BP 112/36; PULSE 64; RESP 16; TEMP 36.7; O2SAT 98
[2024-04-22 12:00] VITALS: BP 110/42; PULSE 62; RESP 17; TEMP 36.5; O2SAT 98
--- NOTE | 2024-04-22 12:39 | PM.DS ---
DS: Admitting Diagnosis Discharge Date 04/22 Admitting Diagnosis SOB DS: Discharge Diagnosis Discharge Diagnosis (1) COVID-19: Code(s): U07.1 - COVID-19 Status: Acute Assessment and Plan: Patient presents with chest pain and shortness of breath. No need for remdesivir or steroids at this time as patient is afebrile, denies SOB, no WBC. - Covid positive on PCR - Chest XR: No acute cardiopulmonary pathology - Troponin WNL (2) Acute UTI: Code(s): N39.0 - Urinary tract infection, site not specified Status: Acute Assessment and Plan: - UA:clear with 1+ leukocyte, 6-10 white blood cell, 3+ bacteria negative nitrates, no squamous epithelial cells seen - UC obtained on 04/17: Ecoli pansensitive - No previous micro to be reviewed - started on Rocephin on 04/17, transitioned to renally dosed Augmentin on 04/19 (3) Hyperkalemia: Code(s): E87.5 - Hyperkalemia Status: Acute Assessment and Plan: Pateints potassium was 5.5 on admission. - K 4.6 on am labs - Continue to monitor Resolved. 04/22- on spironolactone AT HOME BUT IT WAS STOPPED - will hold for now and have pt f/u with pcp within few days of discharge to recheck CMP and see if med needs to be sretaretd and monitor K (4) Acute on chronic renal failure: Qualifiers: Acute renal failure type: unspecified Chronic kidney disease stage: unspecified stage Qualified Code(s): N17.9 - Acute kidney failure, unspecified; N18.9 - Chronic kidney disease, unspecified Code(s): N17.9 - Acute kidney failure, unspecified; N18.9 - Chronic kidney disease, unspecified Status: Acute Assessment and Plan: BUN/Cr 36/3.2. No prior labs to compare this to. Per patients daughter/childcare worker she has history of CKD, unknown stage. Previously following a electronics supervisor but has not been seen for several years. - BUN/Cr 33/2.1 on am labs - Renal US: mild atrophy of the kidneys, without hydronephrosis. - Avoid nephrotoxic medications - Renally dose medications - Monitor I/O and vital signs - Monitor renal function with am labs - Attempted to call PCP, voicemail left (5) Type 2 diabetes mellitus: Code(s): E11.9 - Type 2 diabetes mellitus without complications Status: Acute Assessment and Plan: Patients blood glucose has been stable throughout admission, not requiring any insulin therapy. Will discontinue the POC glucose and SSI at this time and monitor blood glucose with CMP. - home medication - Farxiga 10 mg per PEG tube (6) Hypertension: Code(s): I10 - Essential (primary) hypertension Status: Acute Assessment and Plan: Chronic, well controlled on home medications. - amlodipine 5 mg daily - carvedilol 6.25 mg BID - entresto 1 tab BID - spironolactone 25 mg daily -holding - holding lasix 20 mg PRN due to kidney function - monitor (7) CHF (congestive heart failure): Code(s): I50.9 - Heart failure, unspecified Status: Acute Assessment and Plan: Chronic, does not appear to be in acute exacerbation. - Continue home medications - Monitor DS: Summary Hospital Course Hospital Course: 79 year old female with past medical history of CAD, CHF, DM, HLD, and HTN presents to the hospital for chest pain and shortness of breath. Patient is pleasant lying comfortably in bed. She has no complaints denying chest pain, shortness of breath, nausea/vomiting and changes in bowel/bladder. She remains on covid isolation. RN was able to contact patients daughter and her tube feeds have been resumed. Patients BUN/Cr continue to improve. Attempted to call patients PCP in regards to her baseline function, voicemail left. 04/22- assuming care. pt is seen and examined today. pt is doing well, wants to go home. denies sob, chest pain Status at Discharge Functional status at discharge: uses cane/walker Overall status at discharge: patient is back to baseline Time Spent with Patient T
--- NOTE | 2024-04-23 09:51 | P.CDI_ITS ---
CDI Query Clarification Request Please specify type and acuity of heart failure if known. Risk Factors: Clinical Indicators: Eleveated BNP. Treatment: none * Acute * Chronic * Acute on Chronic * Unknown * Systolic * Diastolic * Combined Systolic and Diastolic * Unknown
--- NOTE | 2024-04-23 09:51 | WPDCDIQUERY2 ---
CDI Query Clarification Request Please specify type and acuity of heart failure if known. Risk Factors: Clinical Indicators: Eleveated BNP. Treatment: none Acute Chronic Acute on Chronic Unknown Systolic Diastolic Combined Systolic and Diastolic Unknown
== END 2024-04-22 16:00 | disposition home or self-care (01) | DRG 178 ==
LOC: ANHED 19:41 → ANH2MED 23:03
PROVIDERS: Emergency Medicine; Student in an Organized Health Care Education/Training Program; Admitting Provider Internal Medicine; Emergency Provider Physician Assistant; Visit Provider Nurse Practitioner
DX: U07.1 COVID-19 (principal); I13.0 Hypertensive heart and chronic kidney disease with heart failure and stage 1 through stage 4 chronic kidney disease, or unspecified chronic kidney disease; N17.9 Acute kidney failure, unspecified; N39.0 Urinary tract infection, site not specified; B96.20 Unspecified Escherichia coli [E. coli] as the cause of diseases classified elsewhere; E11.22 Type 2 diabetes mellitus with diabetic chronic kidney disease; E87.5 Hyperkalemia; E78.5 Hyperlipidemia, unspecified; I50.9 Heart failure, unspecified; I25.10 Atherosclerotic heart disease of native coronary artery without angina pectoris; N18.9 Chronic kidney disease, unspecified; Z86.73 Personal history of transient ischemic attack (TIA), and cerebral infarction without residual deficits; Z79.82 Long term (current) use of aspirin; Z79.02 Long term (current) use of antithrombotics/antiplatelets; Z93.1 Gastrostomy status; Z87.891 Personal history of nicotine dependence
CPT/HCPCS: 36415; 71046; 76775; 80053; 81001; 82948; 83690; 83880; 84484; 85025; 85610; 85730; 87077; 87086; 87088; 87186; 87637; 93005; 96361; 96365; 96366; 97161; 97165; 99285; A9270; G0378; J0696; J7030; J7040